=== PATIENT | male | born 1975 | race Caucasian/White ===

== ENCOUNTER 2020-11-08 15:19 | Emergency (ER) | payer MEDICAID ==
[~2020-11-08] VITALS: Ht 162.6 cm; Wt 92.0 kg
[2020-11-08 15:39] VITALS: BP 147/95
[2020-11-08] MEDS ORDERED: ACETAMINOPHEN 325MG TABLET PO STA (16:54)
[2020-11-08] MEDS ORDERED: IBUPROFEN 600MG TABLET PO STA (16:54)
[2020-11-08 17:34] LABS: BASOPHILS % 0.7 % (0.0-2.0); EOSINOPHILS % 1.9 % (0.0-5.0); HEMATOCRIT. 46.9 % (42.0-52.0); HEMOGLOBIN. 15.8 g/dL (14.0-18.0); LYMPHOCYTES % 38.8 % (20.0-50.0); MEAN CORPUSCULAR HEMOGLOBIN 27.9 pg (28.0-32.0); MEAN CORPUSCULAR VOLUME 82.7 fL (80.0-94.0); MONOCYTES % 8.4 % (2.0-8.0); NEUTROPHILS % 50.2 % (40.0-76.0); PLATELET 148 x1000/uL (130-400); RED BLOOD CELL COUNT 5.67 mill/uL (4.7-6.1)
[2020-11-08 17:40] LABS: CHLORIDE 104 mEq/L (98-107)
[2020-11-08 18:01] LABS: CLARITY URINE CLEAR (CLEAR); COLOR URINE YELLOW (YELLOW); KETONES URINE NEGATIVE (NEGATIVE); LEUKOCYTE ESTERASE URINE NEGATIVE (NEGATIVE); NITRITE URINE NEGATIVE (NEGATIVE); OCCULT BLOOD URINE NEGATIVE (NEGATIVE); PH URINE 6.5 (4.5-8.0); PROTEIN URINE NEGATIVE (NEGATIVE); SPECIFIC GRAVITY URINE 1.018 (1.005-1.030); UROBILINOGEN URINE 0.2 E.U./dL (0.2-1.0)
== END 2020-11-08 21:39 | disposition home or self-care (01) ==
LOC: ER 15:19
DX: R10.9 Unspecified abdominal pain (principal); Z87.442 Personal history of urinary calculi; Z87.19 Personal history of other diseases of the digestive system
CPT/HCPCS: 36415; 74176; 80048; 80076; 81003; 85025; 93005; 99285

== ENCOUNTER 2025-10-08 18:30 | Inpatient (IN) | payer MEDICAID ==
[~2025-10-08] VITALS: Ht 162.6 cm; Wt 79.8 kg
[2025-10-08 18:36] VITALS: O2SAT 100
[2025-10-08] MEDS: SODIUM CHLORIDE 0.9% (SEPSIS BOLUS) IV ONE (21:16)
[2025-10-08] MEDS: CEFTRIAXONE 1GM/50ML 50 ML IV ONE (21:20)
[2025-10-08 21:37] LABS: BASOPHILS % 0.7 % (0.0-2.0); EOSINOPHILS % 1.6 % (0.0-5.0); HEMATOCRIT. 44.4 % (42.0-52.0); HEMOGLOBIN. 14.5 g/dL (14.0-18.0); LYMPHOCYTES % 25.5 % (20.0-50.0); MEAN PLATELET VOLUME 9.5 fl (7.4-10.4); MONOCYTES % 7.8 % (2.0-8.0); NEUTROPHILS % 64.4 % (40.0-76.0); PLATELET 228 x1000/uL (130-400); RED BLOOD CELL COUNT 5.41 mill/uL (4.7-6.1); RED CELL DISTRIBUTION WIDTH 12.8 % (11.6-14.6)
[2025-10-08] MEDS: VANCOMYCIN 1G PREMIX 200 ML IV ONE (21:46)
[2025-10-08 21:49] LABS: INR 1.0
[2025-10-08 21:53] LABS: CREATININE 1.2 mg/dL (0.6-1.3)
[2025-10-08 21:54] LABS: UREA NITROGEN BLOOD 18 mg/dL (9-23)
[2025-10-08 21:55] LABS: ASPARTATE AMINOTRANSFERASE 27 IU/L (<34)
[2025-10-08 21:56] LABS: BILIRUBIN DIRECT 0.2 mg/dL (<=3.0); BILIRUBIN TOTAL 0.6 mg/dL (0.1-1.0); PROTEIN TOTAL 7.6 g/dL (6.0-8.3)
[2025-10-08] MEDS: KETOROLAC 15MG/ML VIAL IV ONE (21:56)
[2025-10-08 22:15] LABS: CLARITY URINE CLEAR (CLEAR); COLOR URINE YELLOW (YELLOW); GLUCOSE URINE NEGATIVE (NEGATIVE); KETONES URINE NEGATIVE (NEGATIVE); LEUKOCYTE ESTERASE URINE NEGATIVE (NEGATIVE); NITRITE URINE NEGATIVE (NEGATIVE); OCCULT BLOOD URINE NEGATIVE (NEGATIVE); PH URINE 6.0 (4.5-8.0); PROTEIN URINE NEGATIVE (NEGATIVE); SPECIFIC GRAVITY URINE 1.015 (1.005-1.030); UROBILINOGEN URINE 0.2 E.U./dL (0.2-1.0)
[2025-10-09 00:43] VITALS: BP 125/81; PULSE 91; RESP 14; TEMP 36.5292
[2025-10-09] MEDS ORDERED: NALOXONE HCL 0.4MG/ML VIAL IV PRN (01:30)
[2025-10-09 03:42] LABS: HEPATITIS C AB NON REACTIVE (Neg) (Negative)
[2025-10-09 04:00] VITALS: BP 126/84; PULSE 90; RESP 18; TEMP 36.3; O2SAT 96
[2025-10-09] MEDS: HYDROCODONE/ACETAMINOPHEN 5/325MG TABLET PO PRN (04:52)
[2025-10-09] MEDS: PIPERACILLIN/TAZO 3.375G/50ML 50 ML IV SCH (06:22)
[2025-10-09 08:00] VITALS: BP 123/80; PULSE 76; RESP 18; TEMP 36.5; O2SAT 97
[2025-10-09] MEDS: PREDNISONE 20MG TABLET PO SCH (09:22)
[2025-10-09] MEDS: VANCOMYCIN 750MG/150ML (BAXTER) IV SCH (09:23)
[2025-10-09 12:00] VITALS: BP 124/83; PULSE 71; RESP 18; TEMP 36.5; O2SAT 98
[2025-10-09 16:00] VITALS: BP 116/74; PULSE 84; RESP 17; TEMP 36.3; O2SAT 96
[2025-10-09 20:00] VITALS: BP 118/80; PULSE 91; RESP 18; TEMP 36.6; O2SAT 95
[2025-10-10] VITALS: BP 104/66; PULSE 74; RESP 18; TEMP 36.3; O2SAT 94
[2025-10-10 04:00] VITALS: BP 117/78; PULSE 71; RESP 18; TEMP 36.3; O2SAT 95
[2025-10-10 08:00] VITALS: BP 116/75; PULSE 62; RESP 17; TEMP 36.4; O2SAT 98
[2025-10-10 08:39] LABS: BASOPHILS % 0.3 % (0.0-2.0); EOSINOPHILS % 2.9 % (0.0-5.0); HEMATOCRIT. 40.1 % (42.0-52.0); HEMOGLOBIN. 13.0 g/dL (14.0-18.0); LYMPHOCYTES % 33.4 % (20.0-50.0); MEAN PLATELET VOLUME 9.4 fl (7.4-10.4); MONOCYTES % 7.9 % (2.0-8.0); NEUTROPHILS % 55.5 % (40.0-76.0); PLATELET 184 x1000/uL (130-400); RED BLOOD CELL COUNT 4.83 mill/uL (4.7-6.1); RED CELL DISTRIBUTION WIDTH 13.0 % (11.6-14.6)
[2025-10-10 08:49] LABS: CREATININE 1.0 mg/dL (0.6-1.3); UREA NITROGEN BLOOD 11 mg/dL (9-23)
[2025-10-10] MEDS: VANCOMYCIN 750MG PREMIX 150 ML IV SCH (11:21)
[2025-10-10] MEDS ORDERED: SULF1TAB48 MT (11:53)
[2025-10-10] MEDS ORDERED: P20 MT (11:53)
[2025-10-10 13:01] VITALS: BP 116/75; PULSE 62; RESP 17; TEMP 97.5
== END 2025-10-10 13:35 | disposition home or self-care (01) | DRG 344 ==
LOC: ER 18:30 → 8EST 22:38 → EDBEDREQ 22:49 → EDBEDREQSVC 22:49 → EDBEDREQTM 22:49 → ENRESERV 23:09
PROVIDERS: ADMIT Internal Medicine; ATTEND Internal Medicine
DX: M00.9 Pyogenic arthritis, unspecified (principal); E66.9 Obesity, unspecified; Z68.30 Body mass index [BMI] 30.0-30.9, adult
CPT/HCPCS: 36415; 73562; 80048; 80076; 80202; 81003; 83605; 84145; 84550; 85025; 86705; 87340; 93005; 96365; 96368; 99291; J0696; J1885; J2543; J3373; J7030; J7512